=== PATIENT | male | born 1950 | race Caucasian/White ===

== ENCOUNTER 2017-02-04 13:25 | Emergency (ER) | payer OTHER ==
--- NOTE | 2017-02-04 13:47 | EDM.PDOC ---
ED HPI GENERAL MEDICAL PROBLEM - General Chief Complaint: General Stated Complaint: REMOVE STITCHES Time Seen by Provider: 02/04/17 13:46 Source of Information: Reports: Patient History Limitations: Reports: No Limitations - History of Present Illness INITIAL COMMENTS - FREE TEXT/NARRATIVE: Gregor presents for suture removal of laceration repair completed on - Related Data Allergies Allergy/AdvReac Type Severity Reaction Status Date / Time clopidogrel bisulfate Allergy Hives Verified 02/04/17 13:39 [From Plavix] Home Meds: Home Meds Aspirin 325 mg PO DAILY 10/22/14 [History] Atenolol 25 mg PO DAILY 10/22/14 [History] Insulin Glarg,Human.Rec.Analog [Lantus] 44 units SUBCNJ BEDTIME 10/22/14 [ History] Simvastatin [Zocor] 40 mg PO BEDTIME 10/22/14 [History] metFORMIN [Glucophage] 500 mg PO BID 10/22/14 [History] Allopurinol [Zyloprim] 300 mg PO ASDIRECTED PRN 11/12/15 [History] Hydrochlorothiazide 25 mg PO DAILY 11/12/15 [History] Insulin Aspart [Novolog Flexpen] 12 unit SQ TID 11/12/15 [History] Lisinopril 2.5 mg PO DAILY 11/13/15 [History] Past Medical History Cardiovascular History: Reports: Bypass, CAD, High Cholesterol, Hypertension, AR , Stents Musculoskeletal History: Reports: Back Pain, Chronic, Gout Endocrine/Metabolic History: Reports: Diabetes, Type II, Obesity/BMI 30+ Dermatologic History: Reports: Other (See Below) Other Dermatologic History: occasional rash to arms - Past Surgical History Cardiovascular Surgical History: Reports: Coronary Artery Bypass, Coronary Artery Stent GI Surgical History: Reports: Hernia, Inguinal Social & Family History - Tobacco Use Smoking Status *Q: Unknown Ever Smoked Years of Tobacco use: 15 Packs/Tins Daily: 0.5 Used Tobacco, but Quit: Yes Month Tobacco Last Used: November Second Hand Smoke Exposure: No - Recreational Drug Use Recreational Drug Use: No ED ROS GENERAL - Review of Systems Review Of Systems: See Below Constitutional: Reports: No Symptoms Skin: Reports: Other (Laceratin to left ring finger repair with two sutures. Suture removal.) ED EXAM, GENERAL - Physical Exam Exam: See Below Free Text/Narrative:: Patient presents for suture removal. He denies complications or concerns. Exam Limited By: No Limitations General Appearance: Alert, WD/WN, No Apparent Distress Peripheral Pulses: 2+: Radial (L), Radial (R) Skin Exam: Other (Laceration healing well, edges well approximated. Suture x 2 removed. No signs of edema, erythema or infection. Full ROM and sensation. ) Course - Vital Signs Last Recorded V/S: Last Vital Signs Temp 36.6 C 02/04/17 13:35 Pulse 54 L 02/04/17 13:35 Resp 16 02/04/17 13:35 BP 134/64 02/04/17 13:35 Pulse Ox 95 02/04/17 13:35 - Re-Assessments/Exams Free Text/Narrative Re-Assessment/Exam: 02/04/17 14:04 Suture x 2 removed per Berta HOLDER. Departure - Departure Time of Disposition: 14:00 Disposition: Home, Self-Care 01 Condition: Good Clinical Impression: Visit for suture removal - Discharge Information Forms: ED Department Discharge Additional Instructions: Keep area clean and dry. Watch for signs of infection. Return for worsening, issues or concerns. - Assessment/Plan Assessment:: Suture removal 2 sutures Left ring finger. Plan: Suture x 2 removed, wound edges well approximated. Keep area clean and dry, return for worsening, issues or concerns.
[2017-02-04 14:48] VITALS: BP 134/64
== END 2017-02-04 14:15 | disposition home or self-care (01) ==
LOC: JP.ED 13:25
DX: Z48.02 Encounter for removal of sutures (principal); I25.10 Atherosclerotic heart disease of native coronary artery without angina pectoris; E78.00 Pure hypercholesterolemia, unspecified; I10 Essential (primary) hypertension; I25.2 Old myocardial infarction; E66.9 Obesity, unspecified; E11.9 Type 2 diabetes mellitus without complications; Z79.899 Other long term (current) drug therapy; Z79.4 Long term (current) use of insulin; Z95.1 Presence of aortocoronary bypass graft
CPT/HCPCS: 99282

== ENCOUNTER 2025-01-16 22:05 | Emergency (ER) | payer OTHER, MEDICARE ==
[2025-01-16 22:24] LABS: BASOPHILS ABSOLUTE AUTO 0.03 K/uL (0.00-0.10); BASOPHILS PERCENT AUTO 0.3 % (0.1-1.3); EOSINOPHILS PERCENT AUTO 0.1 % (0.0-5.4); IMMATURE GRAN ABSOLUTE AUTO 0.05 K/uL (0.00-0.23); IMMATURE GRAN PERCENT AUTO 0.5 % (0.0-0.7); LYMPHOCYTES ABSOLUTE AUTO 0.52 K/uL (0.8-3.3); LYMPHOCYTES PERCENT AUTO 5.0 % (11.4-47.7); MONOCYTES ABSOLUTE AUTO 1.02 K/uL (0.20-0.90); MONOCYTES PERCENT AUTO 9.8 % (3.3-12.6); NEUTROPHILS ABSOLUTE AUTO 8.80 K/uL (1.0-7.6); NEUTROPHILS PERCENT AUTO 84.3 % (40.0-78.1); PLATELET COUNT,PLT 191 K/uL (130-375); RED BLOOD CELL COUNT 4.78 M/uL (4.14-5.76); WHITE BLOOD CELL COUNT,WBC 10.4 K/uL (3.2-11.0)
[2025-01-16 22:25] LABS: EOSINOPHILS ABSOLUTE AUTO 0.01 K/uL (0.00-0.40)
[2025-01-16 22:59] LABS: ALANINE AMINOTRANSFERASE,ALT 44 U/L (12-78); ASPARTATE AMNIOTRANSFERASE,AST 54 U/L (15-37); BILIRUBIN TOTAL 1.6 mg/dL (0.2-1.0); BLOOD UREA NITROGEN,BUN 16 mg/dL (7-18); CARBON DIOXIDE,CO2 24 mmol/L (21-32); CHLORIDE,CL 100 mmol/L (100-108); CREATININE 1.0 mg/dL (0.8-1.3); EST CRCL DRUG DOSING (CG) 62.70 mL/min; ESTIMATED GFR 79 mL/min (>60); GLUCOSE RANDOM 134 mg/dL (74-106); POTASSIUM,K 4.5 mmol/L (3.6-5.2); PROTEIN TOTAL,TP 7.4 g/dL (6.4-8.2); SODIUM,NA 136 mmol/L (140-148)
[2025-01-16 23:00] LABS: A/G RATIO 1.0 (1.2-2.2)
[2025-01-16 23:35] LABS: LACTIC ACID 1.5 mmol/L (0.4-2.0)
[2025-01-16 23:43] LABS: APPEARANCE,URINE CLEAR (CLEAR); GLUCOSE,URINE 500 mg/dL (NEGATIVE); OCCULT BLOOD,URINE LARGE (NEGATIVE)
[2025-01-16 23:57] LABS: SQUAMOUS EPITHELIAL CELLS,UR FEW /HPF; UROTHELIAL CELLS,URINE NOT SEEN /HPF
[2025-01-17 07:59] LABS: CREATINE KINASE,CK 2517.0 U/L (39-308)
[2025-01-17 08:02] LABS: TROPONIN I HIGH SENSITIVITY 503.4 pg/mL (<=60.3)
[2025-01-17 08:35] VITALS: BP 130/54; PULSE 60
== END 2025-01-17 08:33 ==
LOC: JP.ED 22:05
DX: U07.1 COVID-19 (principal); E86.0 Dehydration; R41.0 Disorientation, unspecified; R79.89 Other specified abnormal findings of blood chemistry; R74.8 Abnormal levels of other serum enzymes; I25.10 Atherosclerotic heart disease of native coronary artery without angina pectoris; I10 Essential (primary) hypertension; I25.2 Old myocardial infarction; E78.00 Pure hypercholesterolemia, unspecified; E11.9 Type 2 diabetes mellitus without complications; E66.9 Obesity, unspecified; Z95.5 Presence of coronary angioplasty implant and graft; Z95.1 Presence of aortocoronary bypass graft; Z88.0 Allergy status to penicillin; Z79.4 Long term (current) use of insulin; Z79.82 Long term (current) use of aspirin; Z79.899 Other long term (current) drug therapy; Z79.84 Long term (current) use of oral hypoglycemic drugs; Z68.32 Body mass index [BMI] 32.0-32.9, adult
CPT/HCPCS: 36415; 70450; 71045; 80053; 81001; 82550; 83605; 84484; 85025; 87635; 93005; 99284; J7030; 96360; 96361; 99285-25; U0002